=== PATIENT | male | born 1995 | race American Indian/Alaskan Native ===

== ENCOUNTER 2017-02-11 22:56 | Emergency (ER) | payer MEDICAID, OTHER ==
[2017-02-11 23:01] VITALS: BP 138/90; PULSE 77; RESP 18; TEMP 98.3; O2SAT 99
--- NOTE | 2017-02-11 23:08 | ED PDOC ---
HPI: Psych/Substance Abuse Time Seen by Provider: 02/11/17 23:05 Chief Complaint (Nursing): Psychiatric Evaluation Chief Complaint (Provider): crisis eval History Per: Patient Additional Complaint(s): Patient presents to ED for crisis eval. Patient was placed under arrest by [employer] [facility] earlier and was then released from their custody. While under arrest patient expressed thoughts on wanting to harm himself so D brought him here for crisis eval. Patient denies any suicidal ideation or homicidal ideation. He states his statements earlier were taken out of context and he has no intention or thoughts of wanting to harm himself or anyone else. Patient is no longer under arrest or in police custody. He offers no medical complaints. Past Medical History Reviewed: Historical Data, Nursing Documentation, Vital Signs Vital Signs: Last Vital Signs Temp 98.3 F 02/11/17 22:57 Pulse 77 02/11/17 22:57 Resp 18 02/11/17 22:57 BP 138/90 02/11/17 22:57 Pulse Ox 99 02/11/17 22:57 - Medical History PMH: Migraine - Family History Family History: States: No Known Family Hx - Living Arrangements Living Arrangements: With Family - Social History Current smoker - smoking cessation education provided: Yes Alcohol: Social Drugs: Denies - Home Medications Home Medications: Ambulatory Orders Medication Instructions Recorded Ibuprofen [Motrin] 600 mg PO Q6H #30 tab 02/08/16 - Allergies Allergies/Adverse Reactions: Allergies Allergy/AdvReac Type Severity Reaction Status Date / Time No Known Allergies Allergy Verified 02/08/16 20:45 Review of Systems ROS Statement: Except As Marked, All Systems Reviewed And Found Negative Psych: Positive for: Suicidal ideation (sent by D for crisis eval) Physical Exam - Reviewed Nursing Documentation Reviewed: Yes Vital Signs Reviewed: Yes - Physical Exam Appears: Positive for: Well, Non-toxic, No Acute Distress Skin: Negative for: Rash Eye Exam: Positive for: Normal appearance Cardiovascular/Chest: Positive for: Regular Rate, Rhythm Respiratory: Positive for: Normal Breath Sounds. Negative for: Respiratory Distress Extremity: Positive for: Normal ROM Neurologic/Psych: Positive for: Alert, Oriented - ECG O2 Sat by Pulse Oximetry: 99 Pulse Ox Interpretation: Normal Medical Decision Making Medical Decision Makin21 year old here for crisis eval Plan: Crisis consult As per crisis counselor and psychiatrist action finisher, Dr. Diamond, patient does not meet criteria for admission and is stable for discharge. Disposition - Clinical Impression Clinical Impression: Mood disorder - Patient ED Disposition Is Patient to be Admitted: No Counseled Patient/Family Regarding: Diagnosis, Need For Followup - Disposition Referrals: [facility] [Outside] Disposition: Routine/Home Disposition Time: 23:47 Condition: STABLE Additional Instructions: Follow up as directed. Instructions: Mood Disorders (ED) Forms: [employer] (Georgian)
== END 2017-02-11 23:56 | disposition home or self-care (01) ==
LOC: H.ER 22:56
DX: F39 Unspecified mood [affective] disorder (principal)